=== PATIENT | male | born 1985 ===

== ENCOUNTER 2022-12-24 14:32 | Emergency (ER) | payer SELFPAY ==
[~2022-12-24] VITALS: Ht 185.4 cm; Wt 115.9 kg
[2022-12-24 14:46] VITALS: TEMP 97.6
[2022-12-24] MEDS ORDERED: LIPITOR 40MG TA40 MG PO (14:55)
[2022-12-24] MEDS ORDERED: ELIQUIS 5MG PO (14:55)
[2022-12-24] MEDS ORDERED: PROTONIX 40MG T40 MG PO (14:56)
[2022-12-24] MEDS ORDERED: LOPRESSOR 225 MG/TAB PO (14:56)
[2022-12-24] MEDS ORDERED: K-DUR20 MEQ PO (14:57)
[2022-12-24] MEDS ORDERED: PLAVIX 75MG TAB75 MG PO (14:58)
[2022-12-24] MEDS ORDERED: FLOMAX 0.40.4 MG/CAP PO (14:58)
[2022-12-24] MEDS ORDERED: LASIX 20MG TABL20 MG PO (14:59)
[2022-12-24] MEDS ORDERED: GLUCOPHAGE500 MG/TAB PO (14:59)
[2022-12-24 15:00] LABS: BASO % 0.2 % (0.0-2.0); EOS # 0.2 K/mm3 (0.0-0.7); EOS % 1.6 % (0.0-4.0); GRAN # 10.1 K/mm3 (1.4-6.5); GRAN % 75.2 % (42.2-75.2); HEMATOCRIT 40.2 % (42.0-52.0); LYMPH # 2.2 K/mm3 (1.2-3.4); LYMPH % 16.4 % (20.0-51.0); MEAN CELL VOLUME 88 fl (80.0-100.0); MEAN CORPUSCULAR HEMOGLOBIN 29 pg (27-31); MEAN CORPUSCULAR HGB CONC 32 g/dl (33.0-37.0); MEAN PLATELET VOLUME 10.2 fl (7.4-10.4); MONO # 0.8 K/mm3 (0.1-0.6); MONO % 5.8 % (1.7-9.3); PLATELET COUNT 288 K/mm3 (130-400); RED BLOOD COUNT 4.55 M/mm3 (4.20-5.60); REDCELL DISTRIBUTION WIDTH-CV 13.1 % (11.5-14.5)
[2022-12-24 15:08] LABS: INR 1.2 (0.8-3.0); PROTHROMBIN TIME 14.1 SECONDS (9.7-12.8)
[2022-12-24 15:18] LABS: ALBUMIN 3.3 gm/dL (3.5-5.0); BILIRUBIN,TOTAL 0.9 mg/dL (0.2-1.2); CALCIUM 9.8 mg/dL (8.4-10.2); CREATININE, serum 1.08 mg/dL (0.72-1.25); POTASSIUM 4.2 mmol/L (3.5-4.5); TOTAL PROTEIN 8.9 gm/dL (6.2-8.1)
[2022-12-24 15:28] LABS: TROPONIN-I 0.067 ng/mL (0.00-0.033)
[2022-12-24 16:30] VITALS: BP 129/93; PULSE 99
== END 2022-12-24 16:30 | disposition short-term general hospital (02) ==
LOC: COL.ER 14:32
PROVIDERS: Emergency Medicine
DX: I63.311 Cerebral infarction due to thrombosis of right middle cerebral artery (principal); Z95.1 Presence of aortocoronary bypass graft; Z79.01 Long term (current) use of anticoagulants; Z79.02 Long term (current) use of antithrombotics/antiplatelets; Z28.310 Unvaccinated for COVID-19
CPT/HCPCS: Q9967